=== PATIENT | female | born 1995 | race Caucasian/White ===

== ENCOUNTER 2022-12-25 17:04 | Emergency (ER) | payer BC ==
[~2022-12-25] VITALS: Ht 170.2 cm; Wt 66.2 kg
[2022-12-25 17:30] VITALS: BP 120/78; TEMP 98.7; O2SAT 98
[2022-12-25] MEDS ORDERED: CEPHALEXIN MONOHYDRATE 500 MG CAPSULE PO ONE ×2 (19:00→19:11)
[2022-12-25] MEDS ORDERED: ACETAMINOPHEN ES 500 MG TABLET PO ONE (19:00)
[2022-12-25] MEDS ORDERED: LIDOCAINE 1%-EPI 1:100,000 50 ML VIAL IJ ONE (19:00)
[2022-12-25] MEDS ORDERED: SULFAMETH/TRIMETH 800/160 MG 1 UDTAB TABLET PO ONE (19:00)
[2022-12-25] MEDS ORDERED: LIDOCAINE 1%-EPI 1:100,000 20 ML VIAL ONE (19:10)
[2022-12-25] MEDS ORDERED: ACETAMINOPHEN ES 500 MG TABLET ONE (19:10)
[2022-12-25] MEDS ORDERED: SULFAMETH/TRIMETH 800/160 MG 1 UDTAB TABLET ONE (19:11)
[2022-12-25] MEDS ORDERED: SULF1TAB48 PO (20:22)
[2022-12-25] MEDS ORDERED: CEPH500C2 PO (20:22)
== END 2022-12-25 20:33 | disposition home or self-care (01) ==
LOC: ER 17:11
DX: L02.01 Cutaneous abscess of face (principal); Z79.899 Other long term (current) drug therapy; Z60.2 Problems related to living alone
CPT/HCPCS: 99284; 10160; J3490 ×2

== ENCOUNTER 2023-08-16 15:18 | Emergency (ER) | payer BC ==
[~2023-08-16] VITALS: Ht 170.2 cm; Wt 64.9 kg
[~2023-08-16 15:18] MED LIST: CEPH500C2 PO; SULF1TAB48 PO
[2023-08-16 16:00] VITALS: BP 129/61; TEMP 98.6; O2SAT 99
[2023-08-16] MEDS ORDERED: AMOX-430 PO (16:11)
[2023-08-16] MEDS ORDERED: IBUP-1955 PO (16:11)
== END 2023-08-16 16:33 | disposition home or self-care (01) ==
LOC: ER 15:23
DX: L03.213 Periorbital cellulitis (principal); Z79.899 Other long term (current) drug therapy; Z60.2 Problems related to living alone